=== PATIENT | female | born 1985 | race Caucasian/White ===

== ENCOUNTER 2023-11-16 17:18 | Outpatient (REF) | payer BC, SELFPAY ==
--- NOTE | 2023-11-16 15:50 | PAPFT_PTH ---
PATIENT: Halie Bailey LOC: [facility] U#:[id number] AGE/SX: 38/F ROOM: RE11/16/[address]: Genevieve Marie MD : 1985 BED: DIS: 11/16/2023 SPEC #: [id number] RECD: 11/16/23 17:26 STATUS: HOWIE RESid #: [id number] NELLIE: 11/16/23 15:[address]: Genevieve Marie DEPT: [facility] Cytology RECD BY: Halina Jerez ENTERED: 11/16/23 17:27 SP TYPE: PAPFT JELLY DR: Joelle Local Tissues: 1 - CX/ENDOCX FOR PAP SMEARS Procedures: PAP THIN PREP/UVM Screening HPV DNA PROBE Comments: [id number]
== END 2023-11-16 17:19 | disposition home or self-care (01) ==
LOC: LBN 17:18
PROVIDERS: Visit Provider Obstetrics & Gynecology
DX: Z12.4 Encounter for screening for malignant neoplasm of cervix (principal); Z11.51 Encounter for screening for human papillomavirus (HPV)
CPT/HCPCS: 88142; 87624

== ENCOUNTER 2024-03-12 09:27 | Emergency (ER) | payer OTHER, SELFPAY ==
[2024-03-12 09:28] VITALS: BP 84/47; PULSE 57; RESP 14; TEMP 36.5; O2SAT 100
--- NOTE | 2024-03-12 09:39 | W.ED.GENAD ---
Discharge Plan Disposition Patient Disposition: Home Condition: Stable Discharge Details Clinical Impression: Abrasion of foot, right, Other sprain of right foot, initial encounter Primary Care Provider: Unknown,Unknown ED Provider: Lashell Canas Home Meds and New Rx's Prescriptions: Continued Mirena 21 mcg/24 hours (8 yrs) 52 mg intrauterine device 1 device intrauterine ONCE Rx Instructions: as a single dose magnesium 200 mg tablet 200 mg PO DAILY cholecalciferol (vitamin D3) 25 mcg (1,000 unit) capsule 25 mcg PO DAILY lamotrigine 25 mg tablet 25 mg PO BID Patient Comments: 11/16/23- pt reports takes 25 mg in am and 50 mg in pm. citalopram 30 mg capsule 30 mg PO DAILY clonidine HCl [Catapres] 0.1 MG tablet 0.1 mg PO DAILY naltrexone HCl (bulk) 100 GM powder 6 mg PO DAILY pregabalin [Lyrica] 200 mg capsule 100 mg PO BID Discharge Instructions Instructions: Taking care of cuts, scrapes, and puncture wounds, Going Up and Down Curbs or Stairs With a Walker or Crutches, Foot Sprain ED Additional Instructions: Keep cut clean and dry. Allow to air dry at least 2 hours a day. Wash with running soap and water daily. Use the crutches as needed. Rest, ice, compression elevation. Please take Tylenol or Ibuprofen with food every 4-6 hours as needed for pain and swelling. No evidence of fracture noted on the x-ray. This may take a couple of weeks for it to feel better. Please watch for any signs of infection including increased redness, drainage, red streaks or swelling. Follow up with primary care provider in 3-5 days. Return to ED sooner if any worsening or concerns. Stand Alone Forms: Work Release Referrals: Dillon Bowman PA [[employer]] - Return if symptoms worsen Discharge Data Discharge Date/Time-TO BE ENTERED AT DEPARTURE: 03/12/24 10:32 HPI General Mode of arrival: ambulatory. Date/Time Provider Initiated Documentation: 03/12/24 09:29. Limitations to Documentation: no limitations. Information obtained by: patient, RN notes reviewed and old records reviewed. HPI Narrative: 38-year-old female presents to the ER with a chief complaint of right foot pain after falling off a kayak trailer that was 3 kayaks high on Thursday. She was approximately 5 days ago. Patient does have a abrasion which is slightly macerated to the lateral aspect of her right foot in the midportion. She reports she still having pain with ambulation. Denies any ankle pain no knee pain or hip pain or any other associated symptoms. She is unsure of her last tetanus vaccination. No other associated symptoms or complaints. She did take ibuprofen this morning around 8:00. She does have a past medical history of complex regional pain syndrome, orthostatic hypertension anxiety. Related Data Home Medications ?Medication ?Instructions ?Recorded ?Confirmed clonidine HCl 0.1 mg tablet 0.1 mg PO DAILY 05/20/17 03/12/24 (Catapres) naltrexone HCl (bulk) 100 % powder 6 mg PO DAILY 05/20/17 03/12/24 cholecalciferol (vitamin D3) 25 25 mcg PO DAILY 11/16/23 03/12/24 mcg (1,000 unit) capsule citalopram 30 mg capsule 30 mg PO DAILY 11/16/23 03/12/24 lamotrigine 25 mg tablet 25 mg PO BID 11/16/23 03/12/24 magnesium 200 mg tablet 200 mg PO DAILY 11/16/23 03/12/24 pregabalin 200 mg capsule (Lyrica) 100 mg PO BID 11/16/23 03/12/24 levonorgestrel 21 mcg/24 hr (up to 1 device intrauterine ONCE 11/21/23 03/12/24 8 years) 52 mg intrauterine device (Mirena) Allergies Allergy/AdvReac Type Severity Reaction Status Date / Time Penicillins Allergy Intermediate Skin Rash Unverified 03/12/24 09:35 Sulfa (Sulfonamide Allergy Intermediate Skin Rash Unverified 03/12/24 09:35 Antibiotics) oxycodone (From Percocet) Allergy vomiting Unverified 03/12/24 09:35 General Stated Complaint: Orthopedic MARION: 4 Review of Systems All systems reviewed & are unremarkable except as noted in HPI and below Musculoskeletal Musculoskeletal: Reports as per HPI and Reports abnormal gait (Foot pain) Integumentary/Breasts Skin/Breast: Reports as per HPI and Reports wounds Neurologic Neurologic: Reports abnormal gait (Foot pain) Exam Const General: cooperative, healthy appearing and comfortable Nutritional Appearance: average body habitus and thin Orientation: alert, awake and oriented x3 Extrem Right lower extremity: ankle Details: normal to inspection; no tenderness and no swelling and foot Details: normal capillary refill, tenderness Location: of the lateral foot Location: in the mid-section, toes with normal ROM, no edema and abrasion dorsal lateral mid Details: single; no foreign bodies Left lower extremity: normal to inspection Course Vital Signs Vital signs: Vital Signs Temperature 36.5 C 03/12/24 09:28 Pulse 57 L 03/12/24 09:28 Respiratory Rate 14 03/12/24 09:28 Blood Pressure 84/47 L 03/12/24 09:28 Pulse Oximetry 100 03/12/24 09:28 Temperature 36.5 C 03/12/24 09:28 Temperature Source Temporal Artery Scan 03/12/24 09:28 Pulse 57 L 03/12/24 09:28 Respiratory Rate 14 03/12/24 09:28 Respiratory Effort Normal 03/12/24 09:34 Blood Pressure 84/47 L 03/12/24 09:28 Blood Pressure Position Sitting 03/12/24 09:28 Pulse Oximetry 100 03/12/24 09:28 Oxygen Delivery Method Room Air 03/12/24 09:28 Oxygen Flow Rate 0 03/12/24 09:28 Pain Level 6 03/12/24 09:28 Medical Decision Making 38-year-old female presents to the ER with a chief complaint of right foot pain after falling off a kayak trailer that was 3 kayaks high on . She was approximately 5 days ago. Patient does have a abrasion which is slightly macerated to the lateral aspect of her right foot in the midportion. She reports she still having pain with ambulation. Denies any ankle pain no knee pain or hip pain or any other associated symptoms. She is unsure of her last tetanus vaccination. No other associated symptoms or complaints. She did take ibuprofen this morning around 8:00. She does have a past medical history of complex regional pain syndrome, orthostatic hypertension anxiety. Wound care, bacitracin Tdap booster and x-ray ordered. Unremarkable x-rays of the right foot. Differential diagnose includes not limited to occult fracture, early wound infection, contusion. Will give patient a walking boot and crutches if needed and instructed on home care and wound care follow-up as needed. Also instructed on Rice procedures. Verbalized understanding. This text was generated using Current Mediaation system, please disregard any oddities of phrase or misspellings. Imaging Data Radiologic Study: Imaging: X-Ray Radiologist's impression: XR FOOT RT COMPLETE EXAM: XR FOOT RT COMPLETE CLINICAL HISTORY: Fall , Lateral foot pain. TECHNIQUE: 2D digital imaging was performed. Three views. COMPARISON: No exams were available for comparison FINDINGS: BONES: No acute fracture is present. No bony destructive lesion is seen. JOINTS: No dislocation present. SOFT TISSUE: Normal. IMPRESSION: Unremarkable radiographs of the right foot. Quality:SDOH Health Related Social Needs: No Data to Display PFSH All Active Problems (Updated 03/12/24 @ 10:05 by Lashell Canas NP) Other sprain of right foot, initial encounter (Acute) Abrasion of foot, right (Acute) Medical History Presence of IUD Mirena IUD removed and replaced 11/21/23 Orthostatic hypertension Anxiety Bone fracture R wrist Complex regional pain syndrome I In remission since 2020 when she started lamotrigine Prior to that was on IV ketamine for 20yrs Social History Smoking/Tobacco Use Status: Never Smoking risk assessment performed?: Yes Alcohol Intake: current Alcohol Intake frequency: a few times a week Drug use: Daily Substance use type: marijuana Female Reproductive History Menstrual Age of Menarche: 15 control method: progestin IUCD History History 0 Para Hx # Term Pregnancies Multiple births Hx # Pregnancies Ectopic pregnancies AB induced Hx Number of Living Children AB spontaneous PAWSS Have you Been Recently Intoxicated or Drunk Within the Last 30 days?: No Have you Ever Experienced Previous Episodes of Alcohol Withdrawal?: No Have you ever Experienced Withdrawal Seizures?: No Have you ever Experienced Delirium Tremens(DT)s?: No Have you ever undergone Alcohol Rehabilitation Treatment (i.e, inpt ot outpatient treatment programs)?: No Have you ever Experienced Blackouts?: No Have you ever Combined Alcohol with other Downers within the last 90 days?: No Have you ever Combined Alcohol with any other Substance of Abuse during the last 90 days?: No Result: 0
--- NOTE | 2024-03-12 09:52 | DI.RAD_ITS ---
Exam(s) XR FOOT RT COMPLETE EXAM: XR FOOT RT COMPLETE CLINICAL HISTORY: Fall , Lateral foot pain. TECHNIQUE: 2D digital imaging was performed. Three views. COMPARISON: No exams were available for comparison FINDINGS: BONES: No acute fracture is present. No bony destructive lesion is seen. JOINTS: No dislocation present. SOFT TISSUE: Normal. IMPRESSION: Unremarkable radiographs of the right foot. DATA REPOSITORY: RADIATION DOSE DELIVERED:
[2024-03-12] MEDS: Bacitracin 1 PACKET TP (09:59)
[2024-03-12] MEDS: Acetaminophen 500 MG TAB 1000 MG PO (10:30)
== END 2024-03-12 10:32 | disposition home or self-care (01) ==
PROVIDERS: Emergency Provider Registered Nurse Emergency
DX: S90.811A Abrasion, right foot, initial encounter (principal); S93.601A Unspecified sprain of right foot, initial encounter; W17.89XA Other fall from one level to another, initial encounter; Y93.16 Activity, rowing, canoeing, kayaking, rafting and tubing; Y92.838 Other recreation area as the place of occurrence of the external cause; Z23 Encounter for immunization
CPT/HCPCS: 90471; 90715; 99283; 73630

== ENCOUNTER 2024-03-28 02:24 | Outpatient (CLI) | payer BC, SELFPAY ==
--- NOTE | 2024-03-28 | DI.RAD_ITS ---
Exam(s) XR FOOT RT COMPLETE EXAM: XR FOOT RT COMPLETE CLINICAL HISTORY: M79.671 Pain in rt foot. TECHNIQUE: 2D digital imaging was performed of the right foot. Three images were obtained. AP, obl ique and lateral views were obtained. COMPARISON: CR XR FOOT RT COMPLETE from 03/12/2024 FINDINGS: BONES: No acute fracture is present. No bony destructive lesion is seen. JOINTS: No dislocation present. SOFT TISSUE: Normal. IMPRESSION: Unremarkable radiographs of the right foot. DATA REPOSITORY: RADIATION DOSE DELIVERED:
== END 2024-03-28 02:44 ==
LOC: DI 02:28
PROVIDERS: PCP Family Medicine; Visit Provider Family Medicine
DX: M79.671 Pain in right foot (principal)
CPT/HCPCS: 73630

== ENCOUNTER 2024-09-02 10:04 | Emergency (ER) | payer OTHER, SELFPAY ==
[2024-09-02 10:09] VITALS: BP 112/55; PULSE 69; RESP 20; TEMP 37.3; O2SAT 99
--- NOTE | 2024-09-02 10:30 | DI.RAD_ITS ---
Exam(s) XR FINGER RT RING EXAM: XR FINGER RT RING CLINICAL HISTORY: pain. TECHNIQUE: 2D digital imaging was performed. COMPARISON: No exams were available for comparison FINDINGS: 3 views There is a subtle suggestion of a fracture on the lateral aspect of the base of the middle phalanx of the 4th-ring finger. Minimal displacement. Involves the articular surface. No other fractures emilee ntified. No radiopaque foreign bodies. No degenerative changes. IMPRESSION: Subtle fracture at the base of the middle phalanx of the 4th-ring finger. This involves the articula r surface of the proximal interphalangeal joint. DATA REPOSITORY: RADIATION DOSE DELIVERED:
--- NOTE | 2024-09-02 10:48 | W.ED.GENAD ---
Discharge Plan Disposition Patient Disposition: Home Condition: Stable Discharge Details Clinical Impression: Closed fracture of phalanx of right ring finger Primary Care Provider: Julio Alcantar ED Provider: Rush Lopez Home Meds and New Rx's Prescriptions: Continued Mirena 21 mcg/24 hours (8 yrs) 52 mg intrauterine device 1 device intrauterine ONCE Rx Instructions: as a single dose magnesium 200 mg tablet 200 mg PO DAILY cholecalciferol (vitamin D3) 25 mcg (1,000 unit) capsule 25 mcg PO DAILY lamotrigine 25 mg tablet 25 mg PO BID Patient Comments: 11/16/23- pt reports takes 25 mg in am and 50 mg in pm. citalopram 30 mg capsule 30 mg PO DAILY clonidine HCl [Catapres] 0.1 MG tablet 0.1 mg PO DAILY naltrexone HCl (bulk) 100 GM powder 6 mg PO DAILY pregabalin [Lyrica] 200 mg capsule 100 mg PO BID Discharge Instructions Additional Instructions: Your x-ray showed a fracture (broken bone) Wear the splint until you follow up with orthopedics. Call their office tomorrow to arrange for follow up Return to the emergency department if you feel more ill or have severe worsening pain. Referrals: Vzaquez Lopez MD [ [facility] STAFF PHYSICIAN] - [facility] General Mode of arrival: ambulatory. Date/Time Provider Initiated Documentation: 09/02/24 10:14. Limitations to Documentation: no limitations. Information obtained by: patient. History of Present Illness 39 year old F presents to the emergency department with the chief complaint of right ring finger injury, described as moderate, Quality is described as aching, and is localized to the right and upper extremity. Patient reports no radiation. and it has been constant. No relieving factors improve symptom(s), No exacerbating factors reported . Patient notes no other symptoms.. Related Data Home Medications ?Medication ?Instructions ?Recorded ?Confirmed clonidine HCl 0.1 mg tablet 0.1 mg PO DAILY 05/20/17 09/02/24 (Catapres) naltrexone HCl (bulk) 100 % powder 6 mg PO DAILY 05/20/17 09/02/24 cholecalciferol (vitamin D3) 25 25 mcg PO DAILY 11/16/23 09/02/24 mcg (1,000 unit) capsule citalopram 30 mg capsule 30 mg PO DAILY 11/16/23 09/02/24 lamotrigine 25 mg tablet 25 mg PO BID 11/16/23 09/02/24 magnesium 200 mg tablet 200 mg PO DAILY 11/16/23 09/02/24 pregabalin 200 mg capsule (Lyrica) 100 mg PO BID 11/16/23 09/02/24 levonorgestrel 21 mcg/24 hr (up to 1 device intrauterine ONCE 11/21/23 09/02/24 8 years) 52 mg intrauterine device (Mirena) Allergies Allergy/AdvReac Type Severity Reaction Status Date / Time Penicillins Allergy Intermediate Skin Rash Verified 09/02/24 10:15 Sulfa (Sulfonamide Allergy Intermediate Skin Rash Verified 09/02/24 10:15 Antibiotics) oxycodone (From Percocet) Allergy vomiting Verified 09/02/24 10:15 tagaderm Allergy Unknown rash Uncoded 09/02/24 10:15 General Stated Complaint: Orthopedic MARION: 4 Review of Systems All systems reviewed & are unremarkable except as noted in HPI and below Constitutional Constitutional: Denies chills, Denies fever(s) and Denies weakness Cardiovascular Cardiovascular: Denies chest pain and Denies dyspnea Respiratory Respiratory: Denies cough and Denies dyspnea Gastrointestinal Gastrointestinal: Denies vomiting Neurologic Neurologic: Denies weakness Exam Const General: no acute distress Orientation: alert HENMT Head: normal to inspection Ears: external ears normal General nose exam: external nose normal Mouth: moist mucous membranes Eyes General: appearance normal, both eyes and all related structures Neck Neck: normal visual inspection Resp Effort & Inspection: normal respiratory effort and able to speak in complete sentences Cardio Rate: regular rate Skin General skin exam: no rashes or lesions noted Neuro General: patient alert and patient oriented x3 Extrem General: capillary refill normal Psych Mental Status: mental status grossly normal Course Vital Signs Vital signs: Vital Signs Temperature 37.3 C 09/02/24 10:09 Pulse 69 09/02/24 10:09 Respiratory Rate 09/02/24 10:09 Blood Pressure 112/55 L 09/02/24 10:09 Pulse Oximetry 99 09/02/24 10:09 Temperature 37.3 C 09/02/24 10:09 Pulse 69 09/02/24 10:09 Respiratory Rate 20 09/02/24 10:09 Blood Pressure 112/55 L 09/02/24 10:09 Blood Pressure Position Sitting 09/02/24 10:09 Pulse Oximetry 99 01/20/25 10:09 Oxygen Delivery Method Room Air 09/02/24 10:09 Oxygen Flow Rate 0 09/02/24 10:09 Pain Level 5 09/02/24 10:09 Medical Decision Making 39-year-old female comes in with right ring finger injury. 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 She did not fall or sustain other injuries. She has tenderness throughout the right ring finger. She is able to fully flex at all the joints and extend at the DIP joints but with pain. She has not tried sensation and cap refill. No tenderness elsewhere in the hand. I suspect contusion versus sprain, there is no findings on exam to suggest tendon injury. Will obtain x-rays to evaluate for fracture Patient does have a subtle fracture on x-ray per radiology. Patient was placed in finger splint and given referral to see orthopedic for follow-up Differential Diagnosis Differential Diagnosis: Fracture, sprain, contusion Quality:SDOH Health Related Social Needs: No Data to Display PFSH All Active Problems (Updated 09/02/24 @ 11:09 by Rush Lopez MD) Closed fracture of phalanx of right ring finger (Acute) Pain in right foot (Acute) Sprain of right foot (Acute) Peroneal tendinitis, right leg (Acute) Contusion of right foot (Acute) RICHARD (generalized anxiety disorder) (Acute) Left foot pain (Acute) Medical History Hx of migraine headaches Presence of IUD Mirena IUD removed and replaced 11/21/23 Orthostatic hypertension Anxiety Bone fracture R wrist Complex regional pain syndrome I In remission since 2020 when she started lamotrigine Prior to that was on IV ketamine for 20yrs Social History Smoking/Tobacco Use Status: Never Smoking risk assessment performed?: Yes Alcohol Intake: current Alcohol Intake frequency: a few times a week Drug use: Daily Substance use type: marijuana Female Reproductive History Menstrual Age of Menarche: 15 control method: progestin IUCD History History 0 Para Hx # Term Pregnancies Multiple births Hx # Pregnancies Ectopic pregnancies AB induced Hx Number of Living Children AB spontaneous
--- NOTE | 2024-09-10 16:36 | NUR.NOTE ---
Patient called this morning asking for a work note until she sees ortho next week. Dr. Lopez did a hand written work note, this was emailed to the patient. It will be scanned into the patient record. Email to: [email or web address] Nursing Note:
== END 2024-09-02 11:14 | disposition home or self-care (01) ==
PROVIDERS: Emergency Provider Emergency Medicine; PCP Family Medicine
DX: S62.604A Fracture of unspecified phalanx of right ring finger, initial encounter for closed fracture (principal); W50.0XXA Accidental hit or strike by another person, initial encounter; Y99.0 Civilian activity done for income or pay
CPT/HCPCS: 29130; 99283; 73140

== ENCOUNTER 2024-09-20 10:50 | Outpatient (CLI) | payer OTHER, SELFPAY ==
--- NOTE | 2024-09-20 10:52 | DI.RAD_ITS ---
Exam(s) XR FINGER RT RING EXAM: XR FINGER RT RING INDICATION: R RING FINGER INJURY. COMPARISON: CR XR FINGER RT RING from 09/02/2024 TECHNIQUE: 2D digital imaging was performed. Two views. FINDINGS: The volar plate fracture of the middle phalanx shows some increased healing and remains nondisplaced. No new abnormalities. DATA REPOSITORY: RADIATION DOSE DELIVERED:
== END 2024-09-20 10:51 | disposition home or self-care (01) ==
LOC: DIORS 10:51
PROVIDERS: PCP Family Medicine; Visit Provider Physician Assistant
DX: S62.650D Nondisplaced fracture of middle phalanx of right index finger, subsequent encounter for fracture with routine healing (principal); X58.XXXD Exposure to other specified factors, subsequent encounter
CPT/HCPCS: 73140

== ENCOUNTER 2024-10-14 15:53 | Outpatient (CLI) | payer OTHER, SELFPAY ==
--- NOTE | 2024-10-14 15:30 | DI.RAD_ITS ---
Exam(s) XR FINGER RT RING EXAM: XR FINGER RT RING INDICATION: right ring finger fracture. COMPARISON: No exams were available for comparison TECHNIQUE: 2D digital imaging was performed. Two views. FINDINGS: There has been some interval healing at the previously noted volar plate fracture of the middle phala nx. The alignment is unchanged. No new abnormalities. DATA REPOSITORY: RADIATION DOSE DELIVERED:
== END 2024-10-14 15:54 | disposition home or self-care (01) ==
LOC: DIORS 15:53
PROVIDERS: PCP Family Medicine; Visit Provider Physician Assistant
DX: S62.650D Nondisplaced fracture of middle phalanx of right index finger, subsequent encounter for fracture with routine healing (principal); X58.XXXD Exposure to other specified factors, subsequent encounter
CPT/HCPCS: 73140

== ENCOUNTER 2025-01-02 02:31 | Outpatient (CLI) | payer BC, SELFPAY ==
--- NOTE | 2025-01-02 06:45 | DI.MAMMO_ITS ---
Exam(s) US BREAST LT LIMITED MG MAMMO DIAGNOSTIC BI EXAM: MG MAMMO DIAGNOSTIC BI CLINICAL HISTORY: lt breast lump 3:00, 5cm from nipple.n63.20. COMPARISON: US US BREAST LT LIMITED from 01/02/2025 TECHNIQUE: Craniocaudal and mediolateral oblique Full Field Digital Mammography views of both breast s with Computer Aided Diagnosis followed by Tomosynthesis and left breast ultrasound. FINDINGS: Mammography/Tomosynthesis: Masses: None seen. Architectural Distortion: None seen. Microcalcifications: No suspicious pleomorphic-type are seen. Skin Thickening/Nipple Retraction: None. Left breast US: Echotexture: Normal appearance of the glandular tissue. Shadowing: No suspicious foci. Cyst: 1.5 x 0.7 x 1.1 centimeter simple cyst in the 2 o'clock position 4 cm from the nipple which co rresponds to the palpable abnormality. Other smaller simple cysts were also seen. Solid lesions: None seen. Ductal dilation: None. IMPRESSION: 1. No evidence of malignancy is noted. 2. Unless there is more urgent need, follow-up screening mammography is recommended, as per [place] [employer] guidelines. BI-RADS Category 2 - Benign Findings Breast Density - Category D - The breast are extremely dense, which lowers the sensitivity of the jasmyne mography. Breast density Category C or D implies that the patient has dense breast tissue. Dense breast tissue can make it harder to find cancer on a mammogram. Dense breast tissue is also associated with an incr eased risk of breast cancer. This information about the result of the mammogram report was provided to the patient to raise their awareness. Use this report when you speak with the patient about their risks for breast cancer, which includes their family history. At that time, you may recommend additional screening tests (Ultrasoun d or MRI) as these tests may add significant information. A negative radiographic report should not delay biopsy if a dominant or clinically suspicious mass is present. Up to ten percent of cancers are not identified on mammography. A negative report may reinforce clinical impression. Adenosis and dense breasts may obscure an underlying neoplasm. False positive reports average 6 to 10%. Patient will receive a letter notifying them of these results.
== END 2025-01-02 02:51 ==
LOC: DI 02:31
PROVIDERS: PCP Family Medicine; Visit Provider Nurse Practitioner Women's Health
DX: N63.21 Unspecified lump in the left breast, upper outer quadrant; Z12.31 Encounter for screening mammogram for malignant neoplasm of breast
CPT/HCPCS: 76642; 77062; 77066; G0279